=== PATIENT | female | born 1980 | race American Indian/Alaskan Native ===

== ENCOUNTER 2017-11-07 05:12 | Emergency (ER) | payer OTHER ==
[2017-11-07 06:24] VITALS: BP 136/85
[2017-11-07] MEDS ORDERED: MOTRIN PO ONE (06:25)
[2017-11-07] MEDS ORDERED: MOTRIN ONE (06:29)
--- NOTE | 2017-11-07 07:26 | XRay Report ---
FINAL REPORT EXAM: XR ANKLE 2V RT HISTORY: Swelling of the right ankle, status post injury/fall. TECHNIQUE: Frontal and lateral radiographs of the right ankle were obtained. No prior studies are available for comparison. FINDINGS: There is no fracture or dislocation. There is moderate soft tissue swelling over the lateral malleolus. The ankle mortise is intact. No other discrete osseous abnormality is seen. If clinical symptoms persist, follow-up radiographs and/or MRI is recommended. IMPRESSION: No fracture or dislocation. Moderate lateral soft tissue swelling.
--- NOTE | 2017-11-07 07:42 | Emergency Department Report ---
HPI - General Time Seen by Provider: 11/07/17 07:12 - HPI HPI: she is a 37-year-old female presents to ED complaining of right ankle pain 2 days. Patient states on Saturday while she was walking on her daughter's school. Patient states she accidentally put a failure pot hole and twisted her right ankle patient states she has some minimal pain on Saturday but today the pain is worse this morning when she got up to go to work. She states that she has noticed some swelling around the ankle. She denies loss of sensation, bleeding, laceration of the foot. ED Past Medical Hx - Past Medical History Previous Medical History?: No Additional medical history: Vaginal delivery x 3 - Surgical History Past Surgical History?: No - Social History Smoking Status: Never Smoker Substance Use Type: None - Medications Home Medications: Home Medications Medication Instructions Recorded Confirmed Last Taken Type Ibuprofen [Motrin] 800 mg PO Q8HR PRN #30 tablet 11/07/17 Unknown Rx methOCARBAMOL [Robaxin TAB] 500 mg PO BID #20 tab 11/07/17 Unknown Rx ED Review of Systems ROS: Stated complaint: RT ANKLE INJURY Other details as noted in HPI Constitutional: denies: chills, fever Eyes: denies: eye pain, eye discharge, vision change ENT: denies: ear pain, throat pain Respiratory: denies: cough, shortness of breath, wheezing Cardiovascular: denies: chest pain, palpitations Endocrine: no symptoms reported Gastrointestinal: denies: abdominal pain, nausea, vomiting, diarrhea Genitourinary: denies: urgency, dysuria, discharge Musculoskeletal: denies: back pain, joint swelling, arthralgia Skin: denies: rash, lesions Neurological: denies: headache, weakness, paresthesias Psychiatric: denies: anxiety, depression Hematological/Lymphatic: denies: easy bleeding, easy bruising Physical Exam - Physical Exam Vital Signs: Vital Signs 11/07/17 06:21 Temperature 98.1 F Pulse Rate 90 Respiratory 16 Rate Blood Pressure 136/85 O2 Sat by Pulse 99 Oximetry Physical Exam: GENERAL: Alert and oriented x3, no apparent distress, Normal Gait, atraumatic. HEAD: Head is normocephalic and a-traumatic. LUNGS: Symetrical with respiration, No wheezing, no rales or crackles, CTAB. HEART: S1, S2 present, regular rate and rhythm without murmur, no rubs, no gallops. Non tender to palpation BACK: Full range of motion, no spinal tenderness, nontender to palpation. EXTREMITIES/MUSCULOSKELETAL: No cyanosis, clubbing, rash, lesions or edema. Full ROM bilaterally. UE/LE Pulses 2+ bilaterally. LE and UE 5+ strength bilaterally, moderate swelling to the lateral aspect of the right ankle, tenderness to palpation, patient able to plantarflex and extend foot without pain. NEUROLOGIC: The patient is cooperative with no focal neurologic deficits. Normal speech. Normal sensation in bilateral and lower extremities, No loss of sensation around the ankle and foot, PSYCHIATRIC: Mood is congruent with affect, denies suicidal or homicidal ideations. SKIN: Warm and dry, No lesions, No ulceration or induration present. ED Course Vital Signs 11/07/17 06:21 Temperature 98.1 F Pulse Rate 90 Respiratory 16 Rate Blood Pressure 136/85 O2 Sat by Pulse 99 Oximetry ED Medical Decision Making - Radiology Data Radiology results: report reviewed, image reviewed FINAL REPORT EXAM: XR ANKLE 2V RT HISTORY: Swelling of the right ankle, status post injury/fall. TECHNIQUE: Frontal and lateral radiographs of the right ankle were obtained. No prior studies are available for comparison. FINDINGS: There is no fracture or dislocation. There is moderate soft tissue swelling over the lateral malleolus. The ankle mortise is intact. No other discrete osseous abnormality is seen. If clinical symptoms persist, follow-up radiographs and/or MRI is recommended. IMPRESSION: No fracture or dislocation. Moderate lateral soft tissue swelling. Transcribed By: [facility] Dictated By: RONALD SILVESTRE MD Electronically Authenticated By: RONALD SILVESTRE MD Signed Date/Time: 11/07/17 0323 - Medical Decision Making There is a 37-year-old female presents with right ankle sprain ED course: Patient received Motrin in the ED for pain X-rays of the ankle taken. X-ray shows no fracture or dislocation I discussed the x-ray findings with the patient. I discussed with the patient that she has an ankle sprain and discussed rice protocols with the patient. Her ankle was Isaias wrapped and put in a postop shoe. Vital signs are normal, patient is in no acute distress Discussed with patient follow-up with primary care physician. Discussed the patient and take medications as prescribed. Patient has no neurological deficit. Patient is alert and oriented 3 and understands all instructions given. Critical care attestation.: If time is entered above; I have spent that time in minutes in the direct care of this critically ill patient, excluding procedure time. ED Disposition Clinical Impression: Right ankle sprain Qualifiers: Encounter type: initial encounter Involved ligament of ankle: other ligament Qualified Code(s): S93.491A - Sprain of other ligament of right ankle, initial encounter Disposition: TO HOME OR SELFCARE Is pt being admited?: No Does the pt Need Aspirin: No Condition: Stable Instructions: Ankle Sprain (ED), Arthralgia (ED), Ankle Exercises (GEN), RICE Therapy (ED) Additional Instructions: Make sure to follow up with the primary care physician as discussed. Take all your medications as you've been prescribed. If you have any worsening symptoms or develop new symptoms please return to ED immediately. Prescriptions: Ibuprofen [Motrin] 800 mg PO Q8HR PRN #30 tablet PRN Reason: Pain methOCARBAMOL [Robaxin TAB] 500 mg PO BID #20 tab Referrals: ROBBIE GOMEZ [Other] - 3-5 Days Forms: Work/School Release Form(ED) Time of Disposition: 07:48
== END 2017-11-07 08:14 | disposition home or self-care (01) ==
LOC: ED 05:12
DX: S93.401A Sprain of unspecified ligament of right ankle, initial encounter (principal); X58.XXXA Exposure to other specified factors, initial encounter; Y93.89 Activity, other specified; Y92.89 Other specified places as the place of occurrence of the external cause; Y99.8 Other external cause status
CPT/HCPCS: 99283

== ENCOUNTER 2018-02-22 03:59 | Emergency (ER) | payer OTHER ==
[2018-02-22] MEDS ORDERED: ASPIRIN PO ONE (04:43)
[2018-02-22 05:48] LABS: Basophils % (Auto) 0.5 % (0.0-1.8); Eosinophils # (Auto) 0.2 K/mm3 (0.0-0.4); Eosinophils % (Auto) 2.6 % (0.0-4.3); Hematocrit 40.4 % (30.3-42.9); Hemoglobin 13.2 gm/dl (10.1-14.3); Lymphocytes # (Auto) 1.1 K/mm3 (1.2-5.4); Lymphocytes % (Auto) 13.7 % (13.4-35.0); Mean Corpuscular HGB Conc 33 % (30-34); Mean Corpuscular Hemoglobin 29 pg (28-32); Mean Corpuscular Volume 88 fl (79-97); Monocytes # (Auto) 0.9 K/mm3 (0.0-0.8); Monocytes % (Auto) 11.7 % (0.0-7.3); Platelet Count 318 K/mm3 (140-440)
[2018-02-22 05:53] LABS: BUN/Creatinine Ratio 11; Blood Urea Nitrogen 11 mg/dL (7-17); Calcium 8.8 mg/dL (8.4-10.2); Hemolysis Index 1
--- NOTE | 2018-02-22 06:31 | XRay Report ---
FINAL REPORT PROCEDURE: XR CHEST ROUTINE 2V TECHNIQUE: PA and lateral chest radiographs were obtained. CPT 13104 HISTORY: sob COMPARISON: No prior studies are available for comparison. FINDINGS: Heart: Normal. Mediastinum/Vessels: Normal. Lungs/Pleural space: Normal. Bony thorax: No acute osseous abnormality. Other: IMPRESSION: Normal examination.
[2018-02-22 07:06] LABS: Bilirubin,Urine NEG (Negative); Blood,Urine NEG (Negative); Color,Urine Yellow (Yellow); Protein,Urine <15 mg/dL mg/dL (Negative); Urobilinogen,Urine < 2.0 mg/dL (<2.0); WBC,Urine < 1.0 /HPF (0.0-6.0)
--- NOTE | 2018-02-22 07:37 | Emergency Department Report ---
ED Chest Pain HPI - General Chief Complaint: Chest Pain Stated Complaint: CHEST PAIN Time Seen by Provider: 02/22/18 07:36 Source: patient Mode of arrival: Ambulatory Limitations: No Limitations - History of Present Illness MD Complaint: chest pain Onset: other (patient feels like she's had bronchitis over the last few days. She has chest Pain only on cough. It is substernal. Her cough is nonproductive there is been no hemoptysis. She denies pleuritic chest pain. She has no rest or exertional chest pain.) Pain Location: substernal Pain Radiation: none Severity: mild Severity scale (0 -10): 3 Quality: other (soreness) Consistency: now resolved Improves With: nothing Worsens With: other (cough) Context: other (URI symptoms) re: denies: nausea, vomting, diaphoresis, dyspnea, sense of impending doom Other Symptoms: cough Treatments Prior to Arrival: none Aspirin use within the Past 7 Days: (0) No - Related Data Previous Rx's Medication Instructions Recorded Last Taken Type Ibuprofen [Motrin] 800 mg PO Q8HR PRN #30 tablet 11/07/17 Unknown Rx methOCARBAMOL [Robaxin TAB] 500 mg PO BID #20 tab 11/07/17 Unknown Rx Azithromycin [Zithromax Z-ALAN] 250 mg PO DAILY #6 tablet 02/22/18 Unknown Rx Benzonatate [Tessalon Perles] 100 mg PO Q8HR PRN #10 capsule 02/22/18 Unknown Rx Allergies Allergy/AdvReac Type Severity Reaction Status Date / Time No Known Allergies Allergy Verified 11/07/17 06:28 Heart Score - HEART Score History: Slightly suspicious EKG: Normal Age: < 45 Risk factors: No known risk factors Troponin: < normal limit HEART Score: 0 - Critical Actions Critical Actions: 0-3 pts:0.9-1.7%risk of adverse cardiac event.Candidate for discharge ED Review of Systems ROS: Stated complaint: CHEST PAIN Other details as noted in HPI Constitutional: denies: chills, fever Eyes: denies: eye pain, eye discharge, vision change ENT: denies: ear pain, throat pain Respiratory: cough. denies: shortness of breath, wheezing Cardiovascular: chest pain. denies: palpitations Endocrine: no symptoms reported Gastrointestinal: denies: abdominal pain, nausea, diarrhea Genitourinary: denies: urgency, dysuria, discharge Musculoskeletal: denies: back pain, joint swelling, arthralgia Skin: denies: rash, lesions Neurological: denies: headache, weakness, paresthesias Psychiatric: denies: anxiety, depression Hematological/Lymphatic: denies: easy bleeding, easy bruising ED Past Medical Hx - Past Medical History Additional medical history: Vaginal delivery x 3 - Surgical History Past Surgical History?: No - Social History Smoking Status: Former Smoker Substance Use Type: None - Medications Home Medications: Home Medications Medication Instructions Recorded Confirmed Last Taken Type Ibuprofen [Motrin] 800 mg PO Q8HR PRN #30 tablet 11/07/17 Unknown Rx methOCARBAMOL [Robaxin TAB] 500 mg PO BID #20 tab 11/07/17 Unknown Rx Azithromycin [Zithromax Z-ALAN] 250 mg PO DAILY #6 tablet 02/22/18 Unknown Rx Benzonatate [Tessalon Perles] 100 mg PO Q8HR PRN #10 capsule 02/22/18 Unknown Rx ED Physical Exam - General Limitations: No Limitations General appearance: alert, in no apparent distress - Head Head exam: Present: atraumatic, normocephalic - Eye Eye exam: Present: normal appearance, PERRL, EOMI. Absent: scleral icterus - ENT ENT exam: Present: mucous membranes moist - Neck Neck exam: Present: normal inspection - Respiratory Respiratory exam: Present: normal lung sounds bilaterally. Absent: respiratory distress - Cardiovascular Cardiovascular Exam: Present: regular rate, normal rhythm. Absent: systolic murmur, diastolic murmur, rubs, gallop - GI/Abdominal GI/Abdominal exam: Present: soft, normal bowel sounds. Absent: distended, tenderness, guarding, rebound, rigid - Extremities Exam Extremities exam: Present: normal inspection, normal capillary refill. Absent: tenderness, pedal edema, joint swelling, calf tenderness - Back Exam Back exam: Present: normal inspection. Absent: CVA tenderness (R), CVA tenderness (L) - Neurological Exam Neurological exam: Present: alert, oriented X3, CN II-XII intact. Absent: motor sensory deficit - Psychiatric Psychiatric exam: Present: normal affect, normal mood - Skin Skin exam: Present: warm, dry, intact, normal color. Absent: rash ED Course Vital Signs 03/31/18 03/31/18 03/31/18 04:38 06:21 08:05 Temperature 99.4 F Pulse Rate 98 H 90 Respiratory 20 20 18 Rate Blood Pressure 131/82 144/76 O2 Sat by Pulse 99 98 Oximetry 02/22/18 02/22/18 02/22/18 08:06 08:58 09:00 Temperature Pulse Rate 90 100 H 108 H Respiratory 19 13 12 Rate Blood Pressure 144/76 123/87 123/87 O2 Sat by Pulse 98 99 96 Oximetry 02/22/18 02/22/18 02/22/18 09:02 09:04 09:06 Temperature Pulse Rate 107 H 111 H 109 H Respiratory 15 16 12 Rate Blood Pressure 74/49 118/81 118/81 O2 Sat by Pulse 98 99 99 Oximetry 02/22/18 09:11 Temperature 99.7 F H Pulse Rate Respiratory Rate Blood Pressure O2 Sat by Pulse Oximetry - Reevaluation(s) Reevaluation #1: Patient requesting discharge. Her CT is negative. She is appropriate for outpatient follow-up. 02/22/18 09:53 HIRAM score - Hiram Score Age > 65: (0) No Aspirin use within the Past 7 Days: (0) No 3 or more CAD Risk Factors: (0) No 2 or more Angina events in past 24 hrs: (0) No Known CAD with more than 50% Stenosis: (0) No Elevated Cardiac Markers: (0) No ST Deviation Greater than 0.5mm: (0) No HIRAM Score: 0 ED Medical Decision Making - Lab Data Result diagrams: 02/22/18 05:13 02/22/18 05:13 Laboratory Results - last 24 hr 02/22/18 02/22/18 02/22/18 05:13 05:13 05:13 WBC 7.8 RBC 4.60 Hgb 13.2 Hct 40.4 MCV 88 MCH 29 MCHC 33 RDW 14.0 Plt Count 318 Lymph % (Auto) 13.7 [place] % (Auto) 11.7 H Eos % (Auto) 2.6 Baso % (Auto) 0.5 Lymph # 1.1 L Jennings # 0.9 H Eos # 0.2 Baso # 0.0 Seg Neutrophils % 71.5 H Seg Neutrophils # 5.6 Sodium 139 Potassium 4.0 Chloride 102.8 Carbon Dioxide 27 Anion Gap 13 BUN 11 Creatinine 1.0 Estimated GFR > 60 BUN/Creatinine Ratio 11 Glucose 95 Calcium 8.8 Troponin T < 0.010 HCG, Qual Negative Urine Color Urine Turbidity Urine pH Ur Specific [place] Urine Protein Urine Glucose (UA) Urine Ketones Urine Blood Urine Nitrite Ur Reducing Substances Urine Bilirubin Urine Ictotest Urine Urobilinogen Ur Leukocyte Esterase Urine WBC (Auto) Urine RBC (Auto) U Epithel Cells (Auto) 02/22/18 06:27 WBC RBC Hgb Hct MCV MCH MCHC RDW Plt Count Lymph % (Auto) [place] % (Auto) Eos % (Auto) Baso % (Auto) Lymph # [place] # Eos # Baso # Seg Neutrophils % Seg Neutrophils # Sodium Potassium Chloride Carbon Dioxide Anion Gap BUN Creatinine Estimated GFR BUN/Creatinine Ratio Glucose Calcium Troponin T HCG, Qual Urine Color Yellow Urine Turbidity Clear Urine pH 6.0 Ur Specific [place] 1.020 Urine Protein <15 mg/dl Urine Glucose (UA) Neg Urine Ketones Neg Urine Blood Neg Urine Nitrite Neg Ur Reducing Substances Not Reportable Urine Bilirubin Neg Urine Ictotest Not Reportable Urine Urobilinogen < 2.0 Ur Leukocyte Esterase Neg Urine WBC (Auto) < 1.0 Urine RBC (Auto) 3.0 U Epithel Cells (Auto) 1.0 - EKG Data EKG shows normal: sinus rhythm, axis, intervals, QRS complexes, ST-T waves Rate: normal - EKG Data Interpretation: normal EKG - Radiology Data Radiology results: report reviewed Critical care attestation.: If time is entered above; I have spent that time in minutes in the direct care of this critically ill patient, excluding procedure time. ED Disposition Clinical Impression: Acute bronchitis Qualifiers: Bronchitis organism: unspecified organism Qualified Code(s): J20.9 - Acute bronchitis, unspecified Disposition: - TO HOME OR SELFCARE Is pt being admited?: No Does the pt Need Aspirin: No Condition: Stable Instructions: Acute Bronchitis (ED) Additional Instructions: Follow-up with the primary care provider. You may want to take Zyrtec over-the- counter during the pollen season. Return any acute change or problem. Prescriptions: Azithromycin [Zithromax Z-ALAN] 250 mg PO DAILY #6 tablet Benzonatate [Tessalon Perles] 100 mg PO Q8HR PRN #10 capsule PRN Reason: Cough Referrals: KARLY TORRES MD [Primary Care Provider] - 3-5 Days [facility] [Provider Group] - 3-5 Days Time of Disposition: 09:55
--- NOTE | 2018-02-22 09:01 | Cat Scan Report ---
FINAL REPORT EXAM: CT ANGIO CHEST HISTORY: chest pain TECHNIQUE: CT imaging obtained through the chest in pulmonary angiographic phase following intravenous administration of contrast. Transaxial, Coronal and sagittal reformats with maximal intensity projections are provided. PRIORS: None. FINDINGS: Normal caliber main pulmonary artery. Well opacified pulmonary arterial tree. No pulmonary embolism. No pericardial effusion. Thoracic aorta is normal in course and caliber. No periaortic fluid or stranding. No pneumothorax, effusion or focal airspace disease. There is a right middle lobe nodule measuring up to 6 millimeters on axial series 2, image 62. The central airways are patent. No bronchiectasis. Imaged portion of the upper abdomen is unremarkable. The superficial soft tissues are unremarkable. No acute bony abnormality or worrisome osseous lesions identified. IMPRESSION: No pulmonary embolism or other acute finding. Linear right middle lobe the atelectasis/scarring with an adjacent 6 millimeter nodule. Follow-up is suggested in 6-12 months if this finding has not been previously documented.
[2018-02-22] MEDS ORDERED: ASPIRIN ONE (09:04)
[2018-02-22 10:53] VITALS: BP 111/81
== END 2018-02-22 10:54 | disposition home or self-care (01) ==
LOC: ED 03:59
DX: J20.9 Acute bronchitis, unspecified (principal); Z87.891 Personal history of nicotine dependence
CPT/HCPCS: 36415; 71046; 71275; 80048; 81001; 84484; 84703; 85025; 93005; 93010; 99285; Q9967

== ENCOUNTER 2020-07-20 12:47 | Emergency (ER) | payer OTHER ==
[2020-07-20 13:22] VITALS: BP 136/78
== END 2020-07-20 16:50 | disposition left against medical advice (07) ==
LOC: ED 12:47
DX: M54.5 Low back pain (principal); Z53.21 Procedure and treatment not carried out due to patient leaving prior to being seen by health care provider

== ENCOUNTER 2021-09-23 21:22 | Emergency (ER) | payer OTHER ==
[2021-09-23 21:51] VITALS: BP 134/92
[2021-09-23] MEDS ORDERED: IBUPROFEN 600 MG TAB PO ONE (22:06)
[2021-09-23] MEDS ORDERED: ACETAMINOPHEN 500 MG TAB PO ONE (22:06)
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
== END 2021-09-23 23:40 | disposition home or self-care (01) ==
LOC: ED 21:22
DX: M62.830 Muscle spasm of back (principal); M54.50 Low back pain, unspecified; M62.838 Other muscle spasm; M54.2 Cervicalgia; R51.9 Headache, unspecified; Z79.899 Other long term (current) drug therapy; V89.2XXA Person injured in unspecified motor-vehicle accident, traffic, initial encounter; Y93.89 Activity, other specified; Y92.488 Other paved roadways as the place of occurrence of the external cause; Y99.8 Other external cause status
CPT/HCPCS: 72040; 72100; 99283